=== PATIENT | male | born 1975 | race Caucasian/White ===

== ENCOUNTER 2019-12-25 08:47 | Day surgery (SDC) | payer OTHER ==
[~2019-12-25] VITALS: Ht 175.3 cm; Wt 94.3 kg
[~2019-12-25 08:47] MED LIST: AMBIEN10 MG; CARAFATE1 G
[2019-12-25 09:50] VITALS: BP 129/72; Ht 175.3 cm; Wt 94.3 kg
[2019-12-25 10:14] LABS: EOSINOPHILS 1.7 % (0-7); HEMATOCRIT 39.8 % (42.0-54.0); HEMOGLOBIN 13.8 g/dL (13.5-17.5); IMMATURE GRANULOCYTES 0.3 % (0-5); LYMPHOCYTES 28.5 % (15-50); MCH 34.9 pg (26.0-34.0); MCHC 34.7 g/dL (31.0-37.0); MCV 100.8 fL (80.0-100.0); MEAN PLATELET VOLUME 10.3 fL (7.4-10.4); MONOCYTES 7.9 % (2-11); NEUTROPHILS 60.6 % (40-80); PLATELET COUNT 173 10x3/uL (130-400); RBC 3.95 10x6/uL (4.20-6.10); RDW 15.5 % (11.5-14.5)
[2019-12-25 10:33] LABS: CALC OSMOLALITY 272 mosm/kg (275-300); CARBON DIOXIDE 29.3 mmol/L (21.0-32.0); CHLORIDE - SERUM 104 mmol/L (98-107); CREATININE - SERUM 0.9 mg/dL (0.6-1.3); GLUCOSE 92 mg/dL (74-106); POTASSIUM - SERUM 3.1 mmol/L (3.5-5.1); SODIUM 138 mmol/L (136-145); UREA NITROGEN 5 mg/dL (7-18); eGFR NON AFRICAN AMERICAN > 90 mL/min (90-120)
--- NOTE | 2019-12-25 16:10 | NUR ---
1425- ADMINISTERED NORCO 5/325MG 1 BY MOUTH FOR PAIN / TO NASAL AREA. REPORTS NAUSEA WITHOUT VOMITING ADMINISTERED ZOFRAN 4 MG IVP. VSS. NO DISTRESS.
--- NOTE | 2019-12-25 16:11 | NUR ---
1530-REMOVED IV WITH CATH INTACT, DISPOSED INTO SHARPS, COVERED WITH GUAZE, SECURED WITH MEDIPORE TAPE. VSS. NO DISTRESS. REPORTS NAUSEA HAS SUBSIDED AND PAIN SAME AT 7/10.PER PAIN SCALE PT APPEARS A 3/10 ON PAIN SCALE. PAD TO NASAL AREA FOR POST OPERATIVE DRAINAGE. SLIGHT AMOUNT OF BLOODY DRAINAGE.
--- NOTE | 2019-12-25 16:13 | NUR ---
1550-PT DRESSED REVIEWED POST OP INSTRUCTIONS AND FOLLOW UP WITH PT AND FEMALE FRIEND AT BEDSIDE. VERBALIZED UNDERSTANDING. ESCORTED OUT VIA W/C WITH FRIEND AWAITING TO DRIVE HOME.
--- NOTE | 2019-12-28 09:51 | HP ---
PATIENT: JEFFY SHAHID MEDICAL RECORD: [id number] ACCOUNT: [id number] LOCATION:[facility] : 71 ADMISSION DATE: 12/25/19 PCP: SANDRA VAUGHAN MD HISTORY AND PHYSICAL EXAMINATION PREOPERATIVE HISTORY AND PHYSICAL HISTORY OF PRESENT ILLNESS: Mr. Shahid, 44-year-old male with an enlarging tongue lesion, has been bleeding intermittently profusely and also has nasal obstruction with septal deviation and turbinate hypertrophy. He has been scheduled for surgery for that before in the past and canceled. He is being admitted for septoplasty, bilateral inferior turbinate reduction, and wide local excision of right dorsal tongue lesion. PAST MEDICAL HISTORY: Otherwise, negative. MEDICATIONS: None. ALLERGIES: CODEINE. SOCIAL HISTORY: Denies tobacco. PHYSICAL EXAMINATION: GENERAL: Healthy-appearing. FACE: Normal and symmetric. EYES: Sclerae and conjunctivae are normal. EARS: Canals and TMs are normal. NOSE: He has external nasal deformity with curvature, but really severe right septal deviation, large inferior turbinates. No masses, polyps, or drainage. ORAL CAVITY AND OROPHARYNX: He has got exophytic vascular lesion in the right dorsal tongue. NECK: No masses, no adenopathy. CHEST: Clear. CARDIOVASCULAR: Regular rate and rhythm, no murmur. EXTREMITIES: Normal. IMPRESSION: Tongue lesion, nasal obstruction, septal deviation, and turbinate hypertrophy. PLAN: Wide local excision of tongue lesion, septoplasty, and bilateral inferior turbinate reduction. TRANSINT:[id number] Voice Confirmation ID: [id number] DOCUMENT ID: [id number] BILLY NORMAN MD at 0951 CC: [id number] DICTATION DATE: 12/24/19 1045 STATISTICAL CONSULTANT: 12/24/19 1140 [facility] 12/25/19 [place] [id number]
--- NOTE | 2019-12-28 09:51 | OP ---
PATIENT NAME: JEFFY ORTIZ MEDICAL RECORD: [id number] :71 LOCATION:[facility] ADMISSION DATE: SURGEON: ALEXX PATTEN MD DATE OF OPERATION: 12/25/2019 PREOPERATIVE DIAGNOSIS: Dorsal tongue lesion, nasal obstruction, septal deviation, and turbinate hypertrophy. POSTOPERATIVE DIAGNOSES: Dorsal tongue lesion, nasal obstruction, septal deviation, and turbinate hypertrophy. PROCEDURES: Septoplasty wide local excision of the dorsal tongue on the right side and bilateral inferior turbinate reduction. SURGEON: Alexx Patten MD ANESTHESIA: General orotracheal. BLOOD LOSS: Less than 20 cc. SPECIMENS: Right dorsal tongue lesion. Frozen section diagnosis hemangioma. NASAL PACKING: Shipley splints bilaterally. COMPLICATIONS: None. DISPOSITION: Recovery stable. PROCEDURE NOTE: He was brought to the operating room and placed in supine position, sedated and intubated by anesthesia. Using a headlight nasal speculum, the nose was examined and it really severely deviated anterior septum. The caudal septum was in the left nostril The anterior septum was basically in the coronal plane blocking both sides of the nose. It is injected on the floor of the nose, septum and inferior turbinates with a total of less than 2 cc of 1% lidocaine with 1:100,000 epinephrine and 3 Afrin pledgets were placed in each side of the nose. Then, the tongue was examined and the right dorsal tongue lesion partially pedunculated exophytic extremely vascular lesion there and the tongue was cleaned and then the area around the tongue was injected with about 1/2-1 cc of 1% lidocaine with 1:100,000 epinephrine and the tongue lesion was excised using a scissors and cautery excising cuff of normal dorsal tongue mucosa around it down to the muscle of the tongue, excising the lesion completely, this was sent for frozen, which returned a hemangioma. Bleeding was controlled with cautery and then the wound was closed with a combination of simple interrupted deep and horizontal mattress sutures and then mucosa of the tongue was closed with a combination of simple and horizontal mattress sutures with 3-0 Vicryl. That lesion was completely clean and dry. Then, the nose was examined. All the Afrin pledgets were removed. Hemitransfixion incision was required to release the anterior septum and create a pocket between the lower lateral crura. The medial portion of the columella create a pocket, resect a portion of the anterior cartilage to lie vertically in that pocket along the anterior maxillary spine. Incision was made, excising the right angle bend in the cartilage on the right side, removing that and that allowed the posterior septum to fall more to the midline and then scissors were used to a cut above and below the sharp bony spur to the left side of the nose that was removed. The septum was divided from the maxillary spine. Redundant cartilage on the OPERATIVE REPORT [id number] JEFFY ORTIZ left side was removed and relaxing incisions were made superiorly to allow the septum to fall back down to the midline. Some 3-0 Vicryl was used to attach the septum to the maxillary spine and the pocket in the columella to hold everything straight. Then, the inferior turbinates were medialized with a freer. A Gruenwald was used to take down the inferior redundant portions. Suction cautery to stop any bleeding and both outfractured with a Pike elevator. The nasal septum was again examined and was straight and intact and flat. The incisions were closed bilaterally with interrupted 4-0 chromic. Shipley splints were placed bilaterally with mupirocin ointment and sutured to the anterior membranous septum with a 2-0 Prolene on a Russell needle. He was awakened, extubated, and transported to recovery in good condition. No complications. TRANSINT:[id number] Voice Confirmation ID: [id number] DOCUMENT ID: [id number] ALEXX PATTEN MD at 0951 CC: [id number] DICTATION DATE: 12/25/19 1157 BUILDING SERVICE WORKER: 12/25/19 2306 [facility] 12/25/19 1910 [place] [id number]
== END 2019-12-25 15:50 | disposition home or self-care (01) ==
LOC: D.OPS 08:47 → D.PAN 10:15 → D.OPS 15:50
PROVIDERS: Anesthesiology; ATTEND Otolaryngology
DX: K14.9 Disease of tongue, unspecified (principal); J34.89 Other specified disorders of nose and nasal sinuses; J34.2 Deviated nasal septum; J34.3 Hypertrophy of nasal turbinates